=== PATIENT | female | born 1985 | race Two or more races ===

== ENCOUNTER 2019-10-07 15:51 | Emergency (ER) | payer OTHER ==
[~2019-10-07] VITALS: Ht 154.9 cm; Wt 40.3 kg
[2019-10-07 16:00] VITALS: BP 126/75
--- NOTE | 2019-10-07 16:33 | PHYS DOC ---
Past History Past Medical History: No Pertinent History Past Surgical History: Tubal ligation Smoking: Non-smoker Alcohol Use: None Drug Use: None General Adult EDM: Chief Complaint: TEST HPI: HPI: 34-year-old female presents with report of positive home test that she took today. Patient reports she had previously also had negative tests x2. Patient reports some concern because she has had a tubal ligation in the past. Patient reports she has not been feeling well and her heart rate has been increased over the past few weeks. Patient denies any vaginal bleeding. Reports some nausea without vomiting. Patient reports she was concerned because she was supposed to start her period today. Patient reports last menstrual period was 09/09/2019. Review of Systems: Review of Systems: Constitutional: Denies fever or chills; reports generalized malaise Eyes: Denies redness or eye pain HENT: Denies nasal congestion or sore throat Respiratory: Denies cough or shortness of breath Cardiovascular: Denies chest pain or palpitations GI: Denies abdominal pain or vomiting; reports nausea /[employer]: Denies dysuria or hematuria; reports positive home test Musculoskeletal: Denies back pain or joint pain Integument: Denies rash or skin lesions Neurologic: Denies headache, focal weakness or sensory changes Complete systems were reviewed and found to be within normal limits, except as documented in this note. Allergies: Allergies: Allergies Coded Allergies Type Severity Reaction Last Updated Verified No Known Drug Allergies 10/07/19 No Physical Exam: PE: Constitutional: Well developed, well nourished, tearful and anxious, non-toxic appearance HENT: Normocephalic, atraumatic Eyes: Conjunctiva normal, no discharge Neck: Normal range of motion, supple Lungs & Thorax: No respiratory distress, equal chest rise and fall Abdomen: Soft, no tenderness/distention/guarding Skin: Warm, dry, no erythema, no rash Extremities: No tenderness, ROM intact, no edema Neurologic: Alert and oriented X 3, no focal deficits noted Psychologic: Affect anxious, judgment normal Current Patient Data: Labs: Laboratory Tests Test 10/07/19 16:23 POC Urine HCG, Qualitative hcg negative (Negative) Vital Signs: Vital Signs Date Time Temp Pulse Resp B/P (MAP) Pulse Ox O2 Delivery O2 Flow Rate FiO2 10/07/19 16:00 98.6 87 20 126/75 (92) 100 Room Air EKG: EKG: [] Radiology/Procedures: Radiology/Procedures: [] Course & Med Decision Making: Course & Med Decision Making Pertinent Lab studies reviewed. (See chart for details) Patient presents with concerned that she might be . Reports has taken 3 home tests 1 of which was positive and 2 which were negative. Patient reports concern as she is normally very regular with her menstrual cycles and was supposed to start today. Patient reports has not felt herself over the past week. Abdomen non-peritoneal. Denies concern for STDs. Urine negative. UA without acute process. Patient advised feared condition not demonstrated. Patient stable for discharge with outpatient follow-up with PCP. Discussed findings and plan with patient, who acknowledges understanding and agreement. Mary Disclaimer: Mary Disclaimer: This electronic medical record was generated, in whole or in part, using a voice recognition dictation system. Departure Departure: Impression: Primary Impression: Feared condition not demonstrated Disposition: 01 HOME/RESIDENCE PRIOR TO ADM Condition: STABLE Referrals: PCP,NO (PCP) Additional Instructions: Our urine test was negative. It does not appear you are based on this result. Repeat home test in 1 week if you have not started your menstrual cycle. Justification of Admission: Justification of Admission: Justification of Admission Dx: N/A JOSE VINSON DO Oct 07, 2019 16:33
[2019-10-07 16:38] LABS: BACTERIA,URINE FEW /HPF (0-FEW); BILIRUBIN,URINE NEG (NEG); CLARITY,URINE CLEAR; COLOR,URINE YELLOW; GLUCOSE,URINE NEG (NEG); NITRITE,URINE NEG (NEG); RBC,URINE 0 /HPF (0-2); SQUAMOUS EPITHELIAL CELL,UR FEW /LPF; UROBILINOGEN,URINE 0.2 mg/dL (0.2 mg/dL); WBC,URINE 0 /HPF (0-4)
== END 2019-10-07 16:35 | disposition home or self-care (01) ==
LOC: ER 15:51
DX: R11.0 Nausea (principal); Z98.51 Tubal ligation status; Z71.1 Person with feared health complaint in whom no diagnosis is made
CPT/HCPCS: 81001; 81025; 99283